=== PATIENT | female | born 1990 | race Caucasian/White ===

== ENCOUNTER 2022-01-07 22:36 | Inpatient (IN) | payer MEDICAID ==
[~2022-01-07] VITALS: Ht 154.9 cm; Wt 59.0 kg
[2022-01-08 00:56] LABS: Urine Bacteria NONE SEEN /hpf (None Seen); Urine Blood Negative /uL (Negative); Urine Specific Gravity 1.022 (1.001-1.035); Urine WBC 3 /hpf (0 - 5)
[2022-01-08] MEDS ORDERED: PANTOPRAZOLE 40 MG/10 ML VIAL INJ IV ONE (01:00)
[2022-01-08] MEDS ORDERED: SODIUM CHLORIDE 0.9% 1,000 ML IV ONE (01:00)
[2022-01-08] MEDS ORDERED: IOHEXOL 350 MG/ML 100ML IJ ONE (01:04)
[2022-01-08] MEDS ORDERED: OCTREOTIDE ACETATE 100 MCG/ML VL IV ONE (01:15)
[2022-01-08 01:29] LABS: Basophils # (auto) 0 10 ^3/uL (0-0.2); Basophils % (auto) 0.8 % (0.0-2.0); Eosinophils # (auto) 0.1 10 ^3/uL (0-0.8); Eosinophils % (auto) 1.6 % (0.0-7.0); Hematocrit 33.2 % (36.0-46.0); Hemoglobin 11.3 g/dL (12.2-16.2); Lymphocytes # (auto) 1.1 10 ^3/uL (0.4-5.4); Lymphocytes % (auto) 25.9 % (10.0-50.0); Mean Corpuscular Hemoglobin 31.5 pg (28.0-32.0); Mean Corpuscular Hgb Conc. 34.1 g/dL (32.0-36.0); Mean Corpuscular Volume 92.3 fL (80.0-100.0); Monocytes # (auto) 0.3 10 ^3/uL (0-1.3); Monocytes % (auto) 6.3 % (0.0-12.0); Neutrophils # (auto) 2.8 10 ^3/uL (1.6-8.6); Neutrophils % (auto) 65.4 % (37.0-80.0); Nucleated Red Blood Cells % 0.2 %; Red Cell Distribution Width 16.8 % (11.8-14.3); White Blood Cell 4.3 10^3/uL (4.4-10.8)
[2022-01-08 01:37] LABS: INR 1.44 (0.9-1.15); Partial Thromboplastin Time 35.3 sec (23.6-33.0)
[2022-01-08 01:39] LABS: Albumin 3.3 g/dL (3.4-5.0); Calcium 8.5 mg/dL (8.5-10.1); Potassium 3.7 mmol/L (3.5-5.1)
[2022-01-08 01:41] LABS: Bilirubin, Total 1.6 mg/dL (0.2-1.0)
[2022-01-08] MEDS ORDERED: ONDANSETRON HCL 4 MG/2 ML VIAL IV ONE (02:15)
[2022-01-08] MEDS ORDERED: MORPHINE SULFATE INJ 2 MG/ml SYRG IV PRN (03:45)
[2022-01-08] MEDS ORDERED: cefTRIAXone 1GM/50ML D5W 50 ML IV ONE (03:45)
[2022-01-08] MEDS ORDERED: ONDANSETRON HCL 4 MG/2 ML VIAL IV PRN (03:45)
[2022-01-08] MEDS ORDERED: OCTREOTIDE ACETATE 500 MCG/ML VL ONE (04:10)
[2022-01-08 04:17] LABS: Basophils # (auto) 0 10 ^3/uL (0-0.2); Basophils % (auto) 0.4 % (0.0-2.0); Eosinophils # (auto) 0.1 10 ^3/uL (0-0.8); Hematocrit 29.7 % (36.0-46.0); Hemoglobin 10.3 g/dL (12.2-16.2); Lymphocytes # (auto) 0.9 10 ^3/uL (0.4-5.4); Lymphocytes % (auto) 25.1 % (10.0-50.0); Mean Corpuscular Hemoglobin 32.2 pg (28.0-32.0); Mean Corpuscular Hgb Conc. 34.8 g/dL (32.0-36.0); Mean Corpuscular Volume 92.5 fL (80.0-100.0); Monocytes # (auto) 0.3 10 ^3/uL (0-1.3); Monocytes % (auto) 8.3 % (0.0-12.0); Neutrophils # (auto) 2.2 10 ^3/uL (1.6-8.6); Neutrophils % (auto) 64.2 % (37.0-80.0); Nucleated Red Blood Cells % 0.1 %; Red Blood Cells 3.21 10^6/uL (4.0-5.20); White Blood Cell 3.4 10^3/uL (4.4-10.8)
[2022-01-08] MEDS: SODIUM CHLORIDE 0.9% 1,000 ML IV SCH ×2 (04:33→10:50)
[2022-01-08] MEDS: OCTREOTIDE ACETATE 500 MCG in SODIUM CHL 0.9% 99 ML IV SCH ×3 (04:34→23:46)
[2022-01-08 04:43] LABS: Alcohol, Urine < 3.0 mg/dL (0-10); Amphetamine Screen, Urine NEGATIVE (NEGATIVE); Barbiturate Scree,Urine NEGATIVE (NEGATIVE); Benzodiazephine Screen, Urine NEGATIVE (NEGATIVE); Cannabinoid Screen, Urine POSITIVE (NEGATIVE); Cocaine Screen, Urine NEGATIVE (NEGATIVE); Opiate Scree,Urine NEGATIVE (NEGATIVE)
[2022-01-08 04:50] LABS: Phencyclidine Screen, Urine NEGATIVE (NEGATIVE)
[2022-01-08 06:51] LABS: Hematocrit 30.7 % (36.0-46.0); Hemoglobin 10.4 g/dL (12.2-16.2)
[2022-01-08] MEDS: PANTOPRAZOLE 40 MG/10 ML VIAL INJ IV SCH ×2 (10:44→21:18)
[2022-01-08 12:12] LABS: Hematocrit 30.7 % (36.0-46.0); Hemoglobin 10.2 g/dL (12.2-16.2)
[2022-01-08 16:58] VITALS: BP 128/78
[2022-01-08] MEDS ORDERED: LEV50T PO (17:09)
[2022-01-08] MEDS ORDERED: CHOL20009 PO (17:09)
[2022-01-08] MEDS ORDERED: FOLITAB22 PO (17:09)
[2022-01-08] MEDS ORDERED: FLUO60TA7 PO (17:09)
[2022-01-08 18:15] LABS: Hemoglobin 10.2 g/dL (12.2-16.2)
[2022-01-08 18:17] LABS: Hematocrit 29.9 % (36.0-46.0)
[2022-01-08 22:00] VITALS: BP_SYST 106; BP_SYST 122; BP_DIAS 53; BP_DIAS 65
[2022-01-09 01:05] LABS: Hemoglobin 9.1 g/dL (12.2-16.2)
[2022-01-09 01:08] LABS: Hematocrit 25.7 % (36.0-46.0)
[2022-01-09] MEDS: SODIUM CHLORIDE 0.9% 1,000 ML IV SCH ×3 (02:06→23:39)
[2022-01-09 05:33] VITALS: BP 103/66
[2022-01-09 06:15] LABS: Basophils # (auto) 0 10 ^3/uL (0-0.2); Eosinophils # (auto) 0.1 10 ^3/uL (0-0.8); Neutrophils # (auto) 0.8 10 ^3/uL (1.6-8.6); Red Blood Cells 3.04 10^6/uL (4.0-5.20)
[2022-01-09 06:18] LABS: Basophils % (auto) 0.7 % (0.0-2.0); Eosinophils % (auto) 4.1 % (0.0-7.0); Hemoglobin 9.6 g/dL (12.2-16.2); Lymphocytes % (auto) 49.7 % (10.0-50.0); Mean Corpuscular Hemoglobin 31.4 pg (28.0-32.0); Mean Corpuscular Hgb Conc. 34.1 g/dL (32.0-36.0); Mean Corpuscular Volume 92.1 fL (80.0-100.0); Monocytes # (auto) 0.1 10 ^3/uL (0-1.3); Monocytes % (auto) 7.3 % (0.0-12.0); Neutrophils % (auto) 38.2 % (37.0-80.0); Nucleated Red Blood Cells % 0.1 %; Red Cell Distribution Width 16.8 % (11.8-14.3)
[2022-01-09 06:22] LABS: Potassium 3.8 mmol/L (3.5-5.1)
[2022-01-09 06:30] LABS: Albumin 2.7 g/dL (3.4-5.0); BUN/Creatinine Ratio 14.1; Bilirubin, Total 1.8 mg/dL (0.2-1.0); Calcium 7.8 mg/dL (8.5-10.1); Total Protein 5.9 g/dL (6.4-8.2)
[2022-01-09 08:48] VITALS: BP 106/66
[2022-01-09] MEDS ORDERED: SODIUM CHLORIDE LOCK 10 ML ONE (09:18)
[2022-01-09] MEDS ORDERED: LIDOCAINE VISCOUS 2% 15ML UD ONE (09:18)
[2022-01-09] MEDS: OCTREOTIDE ACETATE 500 MCG in SODIUM CHL 0.9% 99 ML IV SCH ×2 (10:08→19:45)
[2022-01-09] MEDS: PANTOPRAZOLE 40 MG/10 ML VIAL INJ IV SCH ×2 (10:08→23:41)
[2022-01-09] MEDS: cefTRIAXone 1GM/50ML D5W 50 ML IV SCH (10:09)
[2022-01-09 12:03] LABS: Hematocrit 30.6 % (36.0-46.0); Hemoglobin 10.1 g/dL (12.2-16.2)
[2022-01-09 12:24] VITALS: BP 103/60
[2022-01-09] MEDS: MIDAZOLAM HCL 5 MG/ML-1ML VIAL ONE ×2 (16:27→16:30)
[2022-01-09] MEDS: fentaNYL CITRATE 100 MCG/2 ML VL ONE ×2 (16:27→16:30)
[2022-01-09] MEDS: diphenhdrAMINE HCL 50 MG/1 ML VL ONE ×2 (16:27→16:30)
[2022-01-09 17:36] VITALS: BP 118/75
[2022-01-09 18:13] LABS: Hematocrit 26.7 % (36.0-46.0)
[2022-01-09 22:02] VITALS: BP 100/69
[2022-01-10 05:08] VITALS: BP 96/61
[2022-01-10] MEDS: SODIUM CHLORIDE 0.9% 1,000 ML IV SCH (05:45)
[2022-01-10 05:47] LABS: Hematocrit 26.2 % (36.0-46.0); Hemoglobin 9.2 g/dL (12.2-16.2); Mean Corpuscular Hemoglobin 32.4 pg (28.0-32.0); Mean Corpuscular Volume 92.5 fL (80.0-100.0); Red Blood Cells 2.83 10^6/uL (4.0-5.20); Red Cell Distribution Width 16.9 % (11.8-14.3)
[2022-01-10 05:58] LABS: Potassium 3.4 mmol/L (3.5-5.1)
[2022-01-10 06:05] LABS: BUN/Creatinine Ratio 11.6; Calcium 7.7 mg/dL (8.5-10.1)
[2022-01-10 06:10] LABS: Band Neutrophils % (manual) 0; Basophils % (manual) 0 (0.0-2.0); Metamyelocytes % 0; Myelocytes % 0; Promyelocytes % 0; White Blood Cell 1.9 10^3/uL (4.4-10.8)
[2022-01-10 06:11] LABS: Blast Cells 0; Reactive Lymphocytes 0
[2022-01-10] MEDS: OCTREOTIDE ACETATE 500 MCG in SODIUM CHL 0.9% 99 ML IV SCH (06:17)
[2022-01-10 06:48] LABS: Eosinophils % (manual) 7 (0-7); Lymphocytes % (manual) 61 (10.0-50.0); Monocytes % (manual) 2 (0-12)
[2022-01-10] MEDS: cefTRIAXone 1GM/50ML D5W 50 ML IV SCH (08:58)
[2022-01-10] MEDS: PANTOPRAZOLE 40 MG/10 ML VIAL INJ IV SCH (08:58)
[2022-01-10 09:00] VITALS: BP 102/60
[2022-01-10] MEDS ORDERED: POTASSIUM EFFERVESENT TAB 25 MEQ GT ONE (12:00)
[2022-01-10] MEDS ORDERED: LEVO750T8 PO (12:02)
[2022-01-10] MEDS ORDERED: PANT40TA2 PO (12:02)
[2022-01-10] MEDS ORDERED: FOLITAB22 PO (12:02)
[2022-01-10 13:00] VITALS: BP 100/66
[2022-01-10 13:41] VITALS: BP 100/66
== END 2022-01-10 14:45 | disposition home or self-care (01) | DRG 241 ==
LOC: ER 22:36 → OVERFLOW 01-08 03:35 → WEST WING 01-08 16:42
PROVIDERS: ADMIT Registered Nurse; ATTEND Internal Medicine Pulmonary Disease
PROC: 0DB68ZX Excision of Stomach, Via Natural or Artificial Opening Endoscopic, Diagnostic (ICD-10-PCS; 2022-01-09)
PROC: 0DB98ZX Excision of Duodenum, Via Natural or Artificial Opening Endoscopic, Diagnostic (ICD-10-PCS; principal; 2022-01-09 16:25)
DX: K29.91 Gastroduodenitis, unspecified, with bleeding (principal); I85.11 Secondary esophageal varices with bleeding; D69.6 Thrombocytopenia, unspecified; K76.6 Portal hypertension; D63.8 Anemia in other chronic diseases classified elsewhere; K70.30 Alcoholic cirrhosis of liver without ascites; N39.0 Urinary tract infection, site not specified; K59.00 Constipation, unspecified; E03.9 Hypothyroidism, unspecified; F10.129 Alcohol abuse with intoxication, unspecified; Z20.822 Contact with and (suspected) exposure to COVID-19; K31.9 Disease of stomach and duodenum, unspecified; K76.0 Fatty (change of) liver, not elsewhere classified; F12.90 Cannabis use, unspecified, uncomplicated; Y90.0 Blood alcohol level of less than 20 mg/100 ml; B96.20 Unspecified Escherichia coli [E. coli] as the cause of diseases classified elsewhere
CPT/HCPCS: 36415; 43239; 74177; 80048; 80053; 80307; 80320; 81001; 83735; 84702; 85007; 85014; 85018; 85025; 85027; 85610; 85730; 86850; 86900; 86901; 87086; 87088; 87186; 96361; 96374; 99291; C9113; G0378; J0696; J2250; J2405